=== PATIENT | female | born 1960 | race Caucasian/White ===

== ENCOUNTER → 2017-08-02 | Outpatient (CLI) | payer MEDICAID ==
[2017-08-02 08:47] LABS: HEMOGLOBIN 15.4 g/dL (12.2-16.2); LYMPH # 2.8 K/mm3 (0.7-4.5); LYMPH % 26.8 % (10-50.0)
[2017-08-02 08:53] LABS: BUN 18 mg/dL (7-18)
[2017-08-02 09:32] LABS: GFR (ESTIMATED) 57 ML/MIN (59-)
== END ==
LOC: LAB 08:08
PROVIDERS: Emergency Medicine
DX: R25.2 Cramp and spasm (principal); I10 Essential (primary) hypertension; R53.82 Chronic fatigue, unspecified